=== PATIENT | male | born 1960 ===

== ENCOUNTER 2019-12-25 06:38 | Day surgery (SDC) | payer OTHER ==
[~2019-12-25 06:38] MED LIST: FLOVENT DISKU100 MCG IH; PROAIR HFA8.5 GM IH; VITAMIN C PO
[2019-12-25] MEDS ORDERED: PERCOCET 5-3251 EACH PO (13:18)
[2019-12-25] MEDS ORDERED: POLY119PG PO (13:19)
[2019-12-25] MEDS ORDERED: NEURONTIN800 MG PO (13:19)
[2019-12-25] MEDS ORDERED: SURFAK240 M1 PO (13:19)
== END 2019-12-25 17:00 | disposition home or self-care (01) ==
LOC: CIR.AMB 06:38 → ADM 14:30 → CIR.AMB 17:00
PROVIDERS: ATTEND Surgery
DX: K40.90 Unilateral inguinal hernia, without obstruction or gangrene, not specified as recurrent (principal); K42.0 Umbilical hernia with obstruction, without gangrene; K43.6 Other and unspecified ventral hernia with obstruction, without gangrene